=== PATIENT | male | born 2000 | race Caucasian/White ===

== ENCOUNTER 2021-09-08 23:30 | Emergency (ER) | payer OTHER ==
[2021-09-08 23:40] VITALS: BP 119/75; PULSE 98; TEMP 98.2; BMI 23.6
== END 2021-09-09 01:34 | disposition home or self-care (01) ==
LOC: JER 23:30
DX: R09.1 Pleurisy (principal)
CPT/HCPCS: 71046-TC-FY; 93005; 93010; 99284-25